=== PATIENT | female | born 1990 | race Caucasian/White ===

== ENCOUNTER 2021-04-02 04:57 | Emergency (ER) | payer OTHER ==
[~2021-04-02] VITALS: Ht 198.1 cm; Wt 145.2 kg
[2021-04-02 04:59] VITALS: BP 143/89
[2021-04-02] MEDS ORDERED: SPIRONOLACTONE100 M1 PO (05:05)
[2021-04-02] MEDS ORDERED: ESTRACE0.5 MG PO (05:05)
[2021-04-02] MEDS ORDERED: GABAPENTIN600 M1 PO (05:06)
[2021-04-02] MEDS ORDERED: PROGESTERO50 MG/1 M3 PO (05:06)
[2021-04-02] MEDS ORDERED: AMOXICILLIN875 MG PO (05:14)
[2021-04-02] MEDS ORDERED: NAPROSYN500 MG PO (05:14)
== END 2021-04-02 05:21 | disposition home or self-care (01) ==
LOC: ER 04:57
DX: K08.89 Other specified disorders of teeth and supporting structures (principal); F12.90 Cannabis use, unspecified, uncomplicated; J45.909 Unspecified asthma, uncomplicated; Z79.899 Other long term (current) drug therapy

== ENCOUNTER 2021-05-30 12:00 | Emergency (ER) | payer OTHER ==
[~2021-05-30] VITALS: Ht 195.6 cm; Wt 154.2 kg
[~2021-05-30 12:00] MED LIST: AMOXICILLIN875 MG PO; ESTRACE0.5 MG PO; GABAPENTIN600 M1 PO; NAPROSYN500 MG PO; PROGESTERO50 MG/1 M3 PO; SPIRONOLACTONE100 M1 PO
[2021-05-30] MEDS ORDERED: IBUPROFEN 800800 M1 PO (13:35)
[2021-05-30 14:17] VITALS: BP 136/83
== END 2021-05-30 14:17 | disposition home or self-care (01) ==
LOC: ER 12:00
DX: S93.401A Sprain of unspecified ligament of right ankle, initial encounter (principal); J45.909 Unspecified asthma, uncomplicated; Z79.899 Other long term (current) drug therapy; X50.1XXA Overexertion from prolonged static or awkward postures, initial encounter; Y93.89 Activity, other specified; Y92.89 Other specified places as the place of occurrence of the external cause; Y99.8 Other external cause status